=== PATIENT | male | born 1970 | race Caucasian/White ===

== ENCOUNTER 2021-01-17 11:49 | Inpatient (IN) | payer OTHER ==
[~2021-01-17] VITALS: Ht 185.4 cm; Wt 115.7 kg
[2021-01-17] MEDS ORDERED: MORPHINE SULFATE 4 MG/1 ML DISP.SYRIN IV ONE (12:00)
[2021-01-17] MEDS ORDERED: IV NORMAL SALINE 1000 ML BAG IV ONE (12:00)
[2021-01-17] MEDS ORDERED: ONDANSETRON 4 MG/2 ML VIAL IV ONE (12:00)
--- NOTE | 2021-01-17 12:00 | NUR ---
Patient brought in by boss, while at work patient begin to have 10/10 right lower quadrant pain, patient noted MD desire at bedside for assessment
[2021-01-17 12:10] LABS: *BILIRUBIN,URIN NEGATIVE (NEGATIVE); *BLOOD, URINE 3+ (NEGATIVE); *CLARITY,URINE CLEAR (CLEAR); *COLOR,URINE YELLOW (YELLOW); *KETONES,URINE 2+ (NEGATIVE); *UROBILINOGEN,URINE 0.2 E.U./dl (NORMAL); HEMATOCRIT 47.3 % (36.7-47.1); LEUKOCYTE ESTERASE ,URINE NEGATIVE (NEGATIVE); MEAN CORPUSCULAR HEMOGLOBIN 28.5 uug (23.8-33.4); MEAN CORPUSCULAR VOLUME 85.3 fL (73.0-96.2); NITRITE, URINE NEGATIVE (NEGATIVE); PH,URINE 5.5 (5.0-8.0); PLATELET COUNT (AUTO) 339 K/uL (152-348); UGLUCOSE NEGATIVE (NEGATIVE)
[2021-01-17] MEDS ORDERED: ONDANSETRON 4 MG/2 ML VIAL ONE (12:14)
[2021-01-17] MEDS ORDERED: MORPHINE SULFATE 4 MG/1 ML DISP.SYRIN ONE (12:14)
[2021-01-17 12:16] LABS: CREATININE 1.2 mg/dL (0.6-1.3); POTASSIUM 3.4 mmol/L (3.5-5.1)
--- NOTE | 2021-01-17 12:20 | NUR ---
Patien taken to radiology department for CT of abdomen
[2021-01-17 12:22] LABS: BILIRUBIN,DIRECT 0.1 mg/dL (0.0-0.2); BILIRUBIN,TOTAL 0.4 mg/dL (0.2-1.0); TOTAL PROTEIN, SERUM 7.7 g/dL (6.4-8.2)
[2021-01-17] MEDS ORDERED: KETOROLAC TROMETHAMINE 30 MG INJ ONE (12:43)
[2021-01-17] MEDS ORDERED: KETOROLAC TROMETHAMINE 30 MG INJ IVP ONE (12:45)
[2021-01-17] MEDS ORDERED: HYDROMORPHONE 1 MG/1 ML DISP.SYRIN ONE (12:58)
--- NOTE | 2021-01-17 14:00 | NUR ---
Patient noted resting with eyes closed, no signs of acute distress noted, patient able to urinate
[2021-01-17 14:20] LABS: BACTERIA,URINE NONE SEEN /HPF (NONE SEEN); RBC,URINE 20-50 /HPF (0-3); SQUAMOUS EPITHELIAL CELL,UR FEW /HPF (NONE SEEN); URINE AMORPHOUS URATE FEW /HPF; WBC,URINE 0-3 /HPF (0-3)
--- NOTE | 2021-01-17 15:38 | NUR ---
[facility] called for panel call
--- NOTE | 2021-01-17 15:39 | NUR ---
Panel call between Kelly Deluna NP and Delonte JENNINGS at this time
[2021-01-17] MEDS ORDERED: HYDROMORPHONE 1 MG/1 ML DISP.SYRIN IV ONE ×2 (15:45)
[2021-01-17] MEDS ORDERED: IV NS 1000 ML 1,000 ML IV ONE (15:45)
[2021-01-17] MEDS ORDERED: ZOLPIDEM 5 MG TABLET PO PRN (16:00)
[2021-01-17] MEDS ORDERED: MAGNESIUM HYDROXIDE 30 ML LIQUID UDC PO PRN (16:00)
[2021-01-17] MEDS ORDERED: KETOROLAC TROMETHAMINE 30 MG INJ IVP PRN (16:00)
[2021-01-17] MEDS ORDERED: Z GUARD REMEDY PASTE 57 GM TUBE TOP PRN (16:00)
[2021-01-17] MEDS ORDERED: ACETAMINOPHEN 325 MG TABLET PO PRN (16:00)
[2021-01-17] MEDS ORDERED: ONDANSETRON 4 MG/2 ML VIAL IV PRN (16:00)
--- NOTE | 2021-01-17 16:29 | NUR ---
Report given to Francisca GREENFIELD, TESTER REGULATOR Kelly Deluna noted at bedside for assessment
--- NOTE | 2021-01-17 16:35 | NUR ---
Pt. admitted to Tele , under care of LAY OUT INSPECTOR Kelly Deluna Belongs List completed and all belongings sent
[2021-01-17] MEDS ORDERED: HYDROMORPHONE 1 MG/1 ML DISP.SYRIN IV PRN (16:45)
[2021-01-17 16:59] VITALS: BP 132/78
[2021-01-17] MEDS: IV NS 1000 ML 1,000 ML IV PRN (18:01)
--- NOTE | 2021-01-17 18:32 | NUR ---
Patient admitted from ER around 1640 in stable condition. DX of Intractable pain and renal colic.Patient no c/o of abdominal pain. Patient IV access right AC G 20, intact and patent. Patient started IV NS 0.9% at 100cc/hr. tolerated well. Patient instructed straining of urine for monitoring renal calculi. Patient on regular diet. Patient continent on bowel and bladder. Patient ambulatory. not in distress. will continue monitor
[2021-01-17 20:03] VITALS: BP 139/86
[2021-01-18] VITALS: BP 116/71
[2021-01-18 04:05] VITALS: BP 114/72
[2021-01-18] MEDS: IV NS 1000 ML 1,000 ML IV PRN (04:15)
--- NOTE | 2021-01-18 05:46 | NUR ---
PATIENT ASLEEP IN BED. SLEPT WELL THROUGHOUT THE NIGHT. ON TELE SR WITH OCCASIONAL PVC'S. IT WAS REPORTED PER DIVING INSTRUCTOR, THAT PATIENT'S HEART RATE INCREASES UP TO 120'S WHEN PATIENT GETS UP OOB AND WHEN ASLEEP HEART RATE DROPS TO SB 50-52. VS WNL. PATIENT CONTINUED WITH IVF INFUSING TO RIGHT FA #20 GAUGE. NO C/O PAIN THROUGHOUT THE NIGHT. CALL LIGHT IN REACH. ALL NEEDS ATTENDED, WILL CONTINUE TO MONITOR AND ASSESS.
[2021-01-18 06:52] LABS: HEMATOCRIT 41.1 % (36.7-47.1); MEAN CORPUSCULAR HEMOGLOBIN 28.8 uug (23.8-33.4); MEAN CORPUSCULAR VOLUME 85.1 fL (73.0-96.2); PLATELET COUNT (AUTO) 251 K/uL (152-348)
[2021-01-18 07:16] LABS: PHOSPHOROUS 3.2 mg/dL (2.5-4.9); POTASSIUM 4.2 mmol/L (3.5-5.1)
--- NOTE | 2021-01-18 08:00 | NUR ---
Patient in bed, alert and oriented x 4, able to follow simple commands, in room air saturating at 95%, denies of any pain. IV site on the right hand intact. All needs met in a timely manner. Placed call light within easy reach. Will continue to monitor.
[2021-01-18 11:25] VITALS: BP 135/77
--- NOTE | 2021-01-18 14:49 | NUR ---
Patient is to be discharge today per Kelly Deluna DIABETES NURSE with no new orders. Patient stated his will come and pick him up with their private car. VS taken BP: 140/80 T:83 T:98 RR:20. No s/s of distress and denies of any pain. Patient voided with no discomfort, patient had a BM today. Body assessment done. Right AC IV site removed and patient's belongings were check. Discharge instructions given and remind the patient to follow up with his PCP.
--- NOTE | 2021-01-18 15:22 | NUR ---
Patient's came to pick him up. Patient has no s/s of distress and very cooperative upon assessment. Assisted to the lobby by the FOREST MANAGER and assisted to their private car.
== END 2021-01-18 15:25 | disposition home or self-care (01) | DRG 694 ==
LOC: ER 11:49 → TRANSITION 15:46 → TELE3 16:28
PROVIDERS: ADMIT Nurse Practitioner Acute Care; ATTEND Nurse Practitioner Acute Care
DX: N13.2 Hydronephrosis with renal and ureteral calculous obstruction (principal); E66.9 Obesity, unspecified; D72.829 Elevated white blood cell count, unspecified; Z68.33 Body mass index [BMI] 33.0-33.9, adult; Z71.3 Dietary counseling and surveillance; K42.9 Umbilical hernia without obstruction or gangrene; K40.20 Bilateral inguinal hernia, without obstruction or gangrene, not specified as recurrent; Z20.822 Contact with and (suspected) exposure to COVID-19
CPT/HCPCS: 36415; 83605; 83690; 84100; 85025; 93005; A4663; G0378; J1170; J1885; J2270; J2405; J7030